=== PATIENT | male | born 1995 | race American Indian/Alaskan Native ===

== ENCOUNTER 2018-10-31 11:14 | Emergency (ER) | payer SELFPAY ==
[2018-10-31 11:40] VITALS: BP 125/81
--- NOTE | 2018-10-31 13:13 | Emergency Department Report ---
Chief Complaint: Urogenital-Male Stated Complaint: POSS STD Time Seen by Provider: 10/31/18 13:01 - HPI History of Present Illness: Patient is a 23-year-old male who is presenting stating he wants checked for STDs. Patient states that his girlfriend tested positive for bacterial vaginosis for the second time and she believes that is coming from him. Patient states that his girlfriend tested negative for gonorrhea or chlamydia. Patient states he has no symptoms at this time and is discharged dysuria. - ROS Review of Systems: All other systems are reviewed and are negative - Exam Vital Signs: Vital Signs 10/31/18 11:38 Temperature 98.2 F Pulse Rate 59 L Respiratory 16 Rate Blood Pressure 125/81 [Left] O2 Sat by Pulse 98 Oximetry Physical Exam: Patient is no acute distress with abdomen soft nontender MSE screening note: Focused history and physical exam performed. Due to findings the following was ordered: ED Medical Decision Making - Medical Decision Making Patient was given education on nitroglycerin vaginosis. Patient has no symptoms and since his girlfriend tested negative for gonorrhea Chlamydia patient likely also does not have it. Patient given information for the [facility] Department in case he wants STD testing. Patient has no medical emergency at this time. ED Disposition for MSE Clinical Impression: Concern about STD in male without diagnosis Disposition: Z- MED SCREENING EXAM-LEFT Is pt being admited?: No Does the pt Need Aspirin: No Condition: Stable Referrals: TOM VILLARREAL MD [Primary Care Provider] - 3-5 Days Time of Disposition: 13:12
== END 2018-10-31 13:19 | disposition left against medical advice (07) ==
LOC: ED 11:14
DX: Z20.2 Contact with and (suspected) exposure to infections with a predominantly sexual mode of transmission (principal)
CPT/HCPCS: 99282